=== PATIENT | female | born 1965 | race Caucasian/White ===

== ENCOUNTER → 2018-10-24 | Outpatient (CLI) | payer BC ==
--- NOTE | 2018-10-24 13:26 | KCIC ---
THORACIC SPINE 3V History: Mid thoracic pain for one year, right arm pain Comparison: None. Findings: 3 views of the thoracic spine are submitted. Visualized thoracic vertebral body stature and AP alignment are maintained, superior 2 thoracic vertebral bodies poorly seen on lateral views due to overlying bone and soft tissues. There is mild multilevel thoracic spondylosis. Impression: 1. No acute osseous abnormality is identified by radiographs. There is mild thoracic spondylosis. Electronically signed by: Jason Yanes MD (10/24/2018 1:23 PM) [email or web address]
== END | disposition home or self-care (01) ==
LOC: KCIC 10:38
PROVIDERS: ATTEND Physician Assistant Medical
DX: M47.814 Spondylosis without myelopathy or radiculopathy, thoracic region (principal); M41.34 Thoracogenic scoliosis, thoracic region
CPT/HCPCS: 72072

== ENCOUNTER → 2021-01-27 | Outpatient (CLI) | payer BC ==
--- NOTE | 2021-01-30 08:52 | KCIC ---
XR THORACIC SPINE 3VIEWS 01/27/2021 3:09 PM INDICATION: Trapezius muscle spasm. Mid thoracic pain. COMPARISON: 10/24/2018 TECHNIQUE: AP and lateral views of the thoracic spine are provided. FINDINGS/ IMPRESSION: There is minimal levoconvex curvature of the thoracic spine with apex levocurvature at T8-9. There ar e 12 paired ribs with hypoplastic T12 ribs. Cholecystectomy changes are present. Lungs are clear. Vertebral body heights are maintained. Disc heights are maintained. No acute compression fracture is identified. Electronically signed by: Gauri Lake MD (01/30/2021 8:50 AM) [id number]
== END ==
LOC: KCIC 14:54
PROVIDERS: ATTEND Physician Assistant Medical
DX: M43.8X4 Other specified deforming dorsopathies, thoracic region (principal); M62.838 Other muscle spasm; Z90.49 Acquired absence of other specified parts of digestive tract
CPT/HCPCS: 72072